=== PATIENT | male | born 1995 | race Caucasian/White ===

== ENCOUNTER 2018-06-27 11:42 | Emergency (ER) | payer OTHER ==
[2018-06-27] MEDS ORDERED: Ketorolac 60 MG/2 ML SDV IM ONE (12:05)
--- NOTE | 2018-06-27 12:21 | EDM.PDOC ---
ED HPI GENERAL MEDICAL PROBLEM - General Chief Complaint: Back Pain or Injury Stated Complaint: BACK PAIN Time Seen by Provider: 06/27/18 12:16 Source of Information: Reports: Patient History Limitations: Reports: No Limitations - History of Present Illness INITIAL COMMENTS - FREE TEXT/NARRATIVE: HISTORY AND PHYSICAL: History of present illness: Patient is a 22-year-old male who presents to the emergency room today with complaints of low back pain He was working on a tire when he bent over to pull it off and he felt a "shock" through the lumbar spine going into bilateral glutes. He states he had to stop what he was doing due to the pain. Increased pain with twisting and bending at the hips. He denies any urinary or fecal incontinence. Denies any numbness or tingling to his distal extremities. Review of systems: As per history of present illness and below otherwise all systems reviewed and negative. Past medical history: As per history of present illness and as reviewed below otherwise noncontributory. Surgical history: As per history of present illness and as reviewed below otherwise noncontributory. Social history: No reported history of drug or alcohol abuse. Family history: As per history of present illness and as reviewed below otherwise noncontributory. Physical exam: General: Well-developed and well-nourished 22-year-old male. Alert and oriented. Nontoxic appearing and in no acute distress. HEENT: Atraumatic, normocephalic, pupils equal and reactive bilaterally, negative for conjunctival pallor or scleral icterus, mucous membranes moist, throat clear, neck supple, nontender, trachea midline. No drooling or trismus noted. No meningeal signs Lungs: Clear to auscultation, breath sounds equal bilaterally, chest nontender. Heart: S1S2, regular rate and rhythm without overt murmur Abdomen: Soft, nondistended, nontender. Negative for masses or hepatosplenomegaly. Negative for costovertebral tenderness. Pelvis: Stable nontender. Genitourinary: Deferred. Rectal: Deferred. Skin: Intact, warm, dry. No lesions or rashes noted. C-spine/Back: No pinpoint vertebral tenderness upon palpation. No crepitus, step -offs or obvious deformities. Patient was ambulatory into the emergency room. Able to walk on heels and toes without difficulty. No numbness or tingling to his distal extremities. No fecal or urinary incontinence. Does have some paraspinous muscle discomfort when palpating to the low lumbar region into the glue. Extremities: Atraumatic, negative for cords or calf pain. Neurovascular unremarkable. Neuro: Awake, alert, oriented. Cranial nerves II through XII unremarkable. Cerebellum unremarkable. Motor and sensory unremarkable throughout. Exam nonfocal. Notes: X-ray shows no acute findings. Supportive care measures were reviewed and discussed. Patient voices understanding and is agreeable to plan of care. Denies any further questions or concerns at this time. Diagnostics: Lumbar x-ray Therapeutics: Toradol Prescription: Flexeril (#30) Diclofenac (#30) Impression: Low back pain with sciatica Plan: 1. Rest and ice the painful area. Gentle stretching. 2. Tylenol as needed for pain. He may use the Flexeril and diclofenac as directed. This medication may cause drowsiness so do not take it will driving her needing to be functioning outside of the house. Do not take any additional NSAID such as ibuprofen or the diclofenac. Please take with food. 3. Follow-up with your primary care provider in the next 1-2 days. Return to the ED as needed and as discussed. Definitive disposition and diagnosis as appropriate pending reevaluation and review of above. lower back Pain Score (Numeric/FACES): 8 - Related Data Allergies Allergy/AdvReac Type Severity Reaction Status Date / Time No Known Allergies Allergy Verified 06/27/18 11:49 Home Meds: Home Meds Cyclobenzaprine [Flexeril] 10 mg PO TID PRN #30 tab 06/27/18 [Rx] Diclofenac Sodium [Voltaren] 75 mg PO BIDMEALS PRN #30 tab.cr 06/27/18 [Rx] Past Medical History - Past Health History Medical/Surgical History: Denies Medical/Surgical History Cardiovascular History: Reports: Heart Murmur Musculoskeletal History: Reports: Back Pain, Chronic - Infectious Disease History Infectious Disease History: Reports: Chicken Pox - Past Surgical History Musculoskeletal Surgical History: Reports: Other (See Below) Other Musculoskeletal Surgeries/Procedures:: Foot surgery, Hand surgery Social & Family History - Family History Family Medical History: Noncontributory Cardiac: Reports: CAD Endocrine/Metabolic: Reports: Diabetes, Type I - Tobacco Use Smoking Status *Q: Current Every Day Smoker Years of Tobacco use: 10 Packs/Tins Daily: 0.5 - Caffeine Use Caffeine Use: Reports: Energy Drinks - Recreational Drug Use Recreational Drug Use: Yes Drug Use in Last 12 Months: Yes Recreational Drug Type: Reports: Marijuana/Hashish Recreational Drug Use Frequency: Daily ED ROS GENERAL - Review of Systems Review Of Systems: ROS reveals no pertinent complaints other than HPI. ED EXAM,LOWER BACK PAIN/INJURY - Physical Exam Exam: See Below (See dictation) Course - Vital Signs Last Recorded V/S: Last Vital Signs Temp 98.1 F 06/27/18 11:46 Pulse 78 06/27/18 11:46 Resp 16 06/27/18 11:46 BP 134/77 06/27/18 11:46 Pulse Ox 100 06/27/18 11:46 - Orders/Labs/Meds Orders: Active Orders 24 hr Category Date Time Status Lumbar Spine 2 or 3V [CR] Stat Exams 06/27/18 12:05 Taken Meds: Medications Discontinued Medications Generic Name Dose Route Start Last Admin Trade Name Freq PRN Reason Stop Dose Admin Ketorolac Tromethamine 60 mg 06/27/18 12:05 06/27/18 12:19 Toradol IM 06/27/18 12:06 60 mg ONETIME ONE Administration Departure - Departure Time of Disposition: 12:44 Disposition: Home, Self-Care 01 Clinical Impression: Low back pain Qualifiers: Chronicity: acute Back pain laterality: bilateral Sciatica presence: with sciatica Sciatica laterality: bilateral sciatica Qualified Code(s): M54.42 - Lumbago with sciatica, left side - Discharge Information Prescriptions: Cyclobenzaprine [Flexeril] 10 mg PO TID PRN #30 tab PRN Reason: Pain Diclofenac Sodium [Voltaren] 75 mg PO BIDMEALS PRN #30 tab.cr PRN Reason: Pain Instructions: Back Pain, Adult, [id number] Referrals: PCP,None [Primary Care Provider] - Forms: ED Department Discharge Additional Instructions: The following information is given to patients seen in the emergency department who are being discharged to home. This information is to outline your options for follow-up care. We provide all patients seen in our emergency department with a follow-up referral. The need for follow-up, as well as the timing and circumstances, are variable depending upon the specifics of your emergency department visit. If you don't have a primary care physician on staff, we will provide you with a referral. We always advise you to contact your personal physician following an emergency department visit to inform them of the circumstance of the visit and for follow-up with them and/or the need for any referrals to a consulting specialist. The emergency department will also refer you to a specialist when appropriate. This referral assures that you have the opportunity for follow-up care with a specialist. All of these measure are taken in an effort to provide you with optimal care, which includes your follow-up. Under all circumstances we always encourage you to contact your private physician who remains a resource for coordinating your care. When calling for follow-up care, please make the office aware that this follow-up is from your recent emergency room visit. If for any reason you are refused follow-up, please contact the [facility] Emergency Department at and asked to speak to the emergency department charge nurse. [facility] [address] [place] [id number] 1. Rest and ice the painful area. Gentle stretching. 2. Tylenol as needed for pain. He may use the Flexeril and diclofenac as directed. This medication may cause drowsiness so do not take it will driving her needing to be functioning outside of the house. Do not take any additional NSAID such as ibuprofen or the diclofenac. Please take with food. 3. Follow-up with your primary care provider in the next 1-2 days. Return to the ED as needed and as discussed. - My Orders Last 24 Hours: My Active Orders 06/27/18 12:05 Lumbar Spine 2 or 3V [CR] Stat - Assessment/Plan Last 24 Hours: My Active Orders 06/27/18 12:05 Lumbar Spine 2 or 3V [CR] Stat
--- NOTE | 2018-06-27 17:56 | CR ---
EXAM DATE: 06/27/18 PATIENT'S AGE: 22 Patient: ANAHY SANTOS Facility: [place], [place] Site . Site : 1995 Study: XRay Spine Lumbar [id number]/20/2018 12:39:02 PM Ordering Physician: Doctor Sahni Final Report: HISTORY: Pain. TECHNIQUE: Lumbar spine 3 views. COMPARISON: None. FINDINGS: Five lumbar type vertebral bodies. Alignment, vertebral body heights, and disc spaces are maintained. Slightly irregular lucency through the L5 pars interarticularis best seen on the lateral view. IMPRESSION: Possible L5 pars interarticularis defects versus artifact. No other abnormality. Dictated by Bulmaro Downs MD @ Jun 27 2018 12:39PM (Electronic Signature) Report Signed by Proxy. SHY
== END 2018-06-27 13:00 | disposition home or self-care (01) ==
LOC: MW.ED 11:42
DX: M54.42 Lumbago with sciatica, left side (principal); M54.41 Lumbago with sciatica, right side; F17.210 Nicotine dependence, cigarettes, uncomplicated
CPT/HCPCS: 72100; 96372; 99283; J1885

== ENCOUNTER 2018-12-14 11:37 | Emergency (ER) | payer BC, OTHER ==
[2018-12-14] MEDS ORDERED: Acetaminophen/HYDROcodone 325-5 MG Tab PO ONE (12:15)
--- NOTE | 2018-12-14 12:23 | EDM.PDOC ---
ED HPI GENERAL MEDICAL PROBLEM - General Chief Complaint: Skin Complaint Stated Complaint: RIGHT ARM POSS SPIDER BITE Time Seen by Provider: 12/14/18 11:52 Source of Information: Reports: Patient History Limitations: Reports: No Limitations - History of Present Illness INITIAL COMMENTS - FREE TEXT/NARRATIVE: HISTORY AND PHYSICAL: History of present illness: Patient is a 23-year-old male who presents to the ED today with "a spider bite on his arm ". He states that he has had this for about a week and he pops it daily. He states about 3 days ago he went and saw Dr. Busby at [facility] and was given Bactrim and has taken this for the past 3 days. He states that today the bite looks a lot worse. He states for the past 2 days he has been having fevers and chills with a TMax of 101. He states that he has been taking ibuprofen and Tylenol as needed for pain and fever. He states that he has also had a headache over the past day and just feels "unwell" from the bite. Patient states he called Dr. Busby's clinic today and was instructed to come to the ED. Patient denies any nausea, vomiting, difficulties breathing, or any other GI or symptoms. Patient denies any health history. Review of systems: As per history of present illness and below otherwise all systems reviewed and negative. Past medical history: As per history of present illness and as reviewed below otherwise noncontributory. Surgical history: As per history of present illness and as reviewed below otherwise noncontributory. Social history: See social history for further information Family history: As per history of present illness and as reviewed below otherwise noncontributory. Physical exam: General: Patient is alert, oriented, and in no acute distress. He is tired appearing but sitting comfortably on the exam table. HEENT: Atraumatic, normocephalic, pupils equal and reactive bilaterally, negative for conjunctival pallor or scleral icterus, mucous membranes moist, TMs normal bilaterally, throat clear, neck supple, nontender, trachea midline. No drooling or trismus noted. No meningeal signs. No hot potato voice noted. Lungs: Clear to auscultation, breath sounds equal bilaterally, chest nontender. Heart: S1S2, regular rate and rhythm without overt murmur Abdomen: Soft, nondistended, nontender. Negative for masses or hepatosplenomegaly. Negative for costovertebral tenderness. Pelvis: Stable nontender. Genitourinary: Deferred. Rectal: Deferred. Skin: See extremities. Otherwise, intact, warm, dry. No lesions or rashes noted. Extremities: There is a 3 cm x 3 cm abscess on patient's right forearm on the ulnar aspect. Otherwise, atraumatic, negative for cords or calf pain. Neurovascular unremarkable. Neuro: Awake, alert, oriented. Cranial nerves II through XII unremarkable. Cerebellum unremarkable. Motor and sensory unremarkable throughout. Exam nonfocal. Notes: Area was cleansed prior to lidocaine injection. 1% lidocaine was used to anesthetize the area. 11 blade scalpel was used for I&D. Minimal amount of thick purulent drainage was expressed from the site. Culture was obtained and sent to lab. Area was cleansed with chlorhexidine and wound wash. Bacitracin dressing applied. Waiting on a CBC and CMP results. Area of surrounding erythema was marked prior to applying dressing. Tetanus was updated today. Labs are reassuring today. Home instructions were reviewed and discussed with patient and mother at bedside. Both voice understanding and are agreeable to plan of care. They will follow-up with their primary care provider Dr. Garcia in the next few days. They deny any further questions or concerns at this time. Diagnostics: CBC, CMP Therapeutics: Sarah Ann, lidocaine, I&D Prescription: None Impression: 1. Abscess, right forearm Plan: 1. Continue medication Dr. Busby prescribed for you (Bactrim). This will help rid of the infection. 2. Watch for redness growing outside of area marked on arm. If this is spreading outward, return to ED or Dr. Busby for change of antibiotic. 3. Alternate Tylenol and Ibuprofen as needed for pain / discomfort. 4. Return to the ED as needed and as discussed. Definitive disposition and diagnosis as appropriate pending reevaluation and review of above. Right Arm Pain Score (Numeric/FACES): 8 - Related Data Allergies Allergy/AdvReac Type Severity Reaction Status Date / Time No Known Allergies Allergy Verified 06/27/18 11:49 Home Meds: Home Meds ALPRAZolam [Xanax] 1 tab PO TID PRN 12/14/18 [History] Past Medical History - Past Health History Medical/Surgical History: Denies Medical/Surgical History Cardiovascular History: Reports: Heart Murmur Musculoskeletal History: Reports: Back Pain, Chronic - Infectious Disease History Infectious Disease History: Reports: Chicken Pox - Past Surgical History Musculoskeletal Surgical History: Reports: Other (See Below) Other Musculoskeletal Surgeries/Procedures:: Foot surgery, Hand surgery Social & Family History - Family History Family Medical History: Noncontributory Cardiac: Reports: CAD Endocrine/Metabolic: Reports: Diabetes, Type I - Caffeine Use Caffeine Use: Reports: Energy Drinks ED ROS GENERAL - Review of Systems Review Of Systems: ROS reveals no pertinent complaints other than HPI. ED EXAM, SKIN/RASH Exam: See Below (See dictation) Course - Vital Signs Last Recorded V/S: Last Vital Signs Temp 97.8 F 12/14/18 12:10 Pulse 63 12/14/18 12:10 Resp 18 12/14/18 12:10 BP 116/76 12/14/18 12:10 Pulse Ox 100 12/14/18 12:10 - Orders/Labs/Meds Orders: Active Orders 24 hr Category Date Time Status Vaccines to be Administered [RC] PER UNIT ROUTINE Care 12/14/18 12:37 Active COMPREHENSIVE METABOLIC PN,CMP [CHEM] Stat Lab 12/14/18 12:26 Received CULTURE WOUND [RM] Stat Lab 12/14/18 12:31 Received Labs: Laboratory Tests 12/14/18 Range/Units 12:26 WBC 5.82 (4.0-11.0) K/uL RBC 5.06 (4.50-5.90) M/uL Hgb 14.7 (13.0-17.0) g/dL Hct 41.9 (38.0-50.0) % MCV 82.8 (80.0-98.0) fL MCH 29.1 (27.0-32.0) pg MCHC 35.1 (31.0-37.0) g/dL RDW Std Deviation 38.4 (28.0-62.0) fl RDW Coeff of Laisha 13 (11.0-15.0) % Plt Count 262 (150-400) K/uL MPV 9.30 (7.40-12.00) fL Neut % (Auto) 65.7 (48.0-80.0) % Lymph % (Auto) 26.8 (16.0-40.0) % [place] % (Auto) 6.5 (0.0-15.0) % Eos % (Auto) 0.7 (0.0-7.0) % Baso % (Auto) 0.3 (0.0-1.5) % Neut # (Auto) 3.8 (1.4-5.7) K/uL Lymph # (Auto) 1.6 (0.6-2.4) K/uL [place] # (Auto) 0.4 (0.0-0.8) K/uL Eos # (Auto) 0.0 (0.0-0.7) K/uL Baso # (Auto) 0.0 (0.0-0.1) K/uL Nucleated RBC % 0.0 /100WBC Nucleated RBCs # 0 K/uL Meds: Medications Discontinued Medications Generic Name Dose Route Start Last Admin Trade Name Freq PRN Reason Stop Dose Admin Hydrocodone Bitart/Acetaminophen 1 tab 12/14/18 12:15 12/14/18 12:23 Sarah Ann 325-5 Mg PO 12/14/18 12:16 1 tab ONETIME ONE Administration Bacitracin 1 dose 12/14/18 12:36 12/14/18 12:42 Bacitracin Oint 1 Gm TOP 12/14/18 12:37 1 dose ONETIME ONE Administration Diphtheria/Tetanus/Acell Pertussis 0.5 ml 12/14/18 12:37 12/14/18 12:43 Adacel IM 12/14/18 12:38 0.5 ml .ONCE ONE Administration Lidocaine HCl 5 ml 12/14/18 12:16 12/14/18 12:23 Xylocaine-Mpf 1% INJECT 12/14/18 12:17 5 ml ONETIME ONE Administration Departure - Departure Time of Disposition: 12:50 Disposition: Home, Self-Care 01 Clinical Impression: Abscess - Discharge Information Instructions: Skin Abscess, [id number] Referrals: Thai Garcia MD [Primary Care Provider] - Forms: ED Department Discharge Additional Instructions: The following information is given to patients seen in the emergency department who are being discharged to home. This information is to outline your options for follow-up care. We provide all patients seen in our emergency department with a follow-up referral. The need for follow-up, as well as the timing and circumstances, are variable depending upon the specifics of your emergency department visit. If you don't have a primary care physician on staff, we will provide you with a referral. We always advise you to contact your personal physician following an emergency department visit to inform them of the circumstance of the visit and for follow-up with them and/or the need for any referrals to a consulting specialist. The emergency department will also refer you to a specialist when appropriate. This referral assures that you have the opportunity for follow-up care with a specialist. All of these measure are taken in an effort to provide you with optimal care, which includes your follow-up. Under all circumstances we always encourage you to contact your private physician who remains a resource for coordinating your care. When calling for follow-up care, please make the office aware that this follow-up is from your recent emergency room visit. If for any reason you are refused follow-up, please contact the [facility] Emergency Department at and asked to speak to the emergency department charge nurse. [facility] Primary [facility] [address] [place] [id number] [facility] [address] [place] [address] 1. Continue medication Dr. Busby prescribed for you (Bactrim). This will help rid of the infection. 2. Watch for redness growing outside of area marked on arm. If this is spreading outward, return to ED or Dr. Busby for change of antibiotic. 3. Alternate Tylenol and Ibuprofen as needed for pain / discomfort. 4. Return to the ED as needed and as discussed. - My Orders Last 24 Hours: My Active Orders 12/14/18 12:26 COMPREHENSIVE METABOLIC PN,CMP [CHEM] Stat 12/14/18 12:31 CULTURE WOUND [RM] Stat 12/14/18 12:37 Vaccines to be Administered [RC] PER UNIT ROUTINE - Assessment/Plan Last 24 Hours: My Active Orders 12/14/18 12:26 COMPREHENSIVE METABOLIC PN,CMP [CHEM] Stat 12/14/18 12:31 CULTURE WOUND [RM] Stat 12/14/18 12:37 Vaccines to be Administered [RC] PER UNIT ROUTINE
[2018-12-14] MEDS ORDERED: Bacitracin Oint 1 GM U/D Packet TOP ONE (12:36)
[2018-12-14] MEDS ORDERED: Diphtheria,Pertussis(Acell),Tetanus Vaccine 0.5 ML Syringe IM ONE (12:37)
[2018-12-14 12:56] LABS: CHLORIDE,CL 105 mmol/L (98-107); SODIUM,NA 140 mmol/L (136-148)
== END 2018-12-14 12:57 | disposition home or self-care (01) ==
LOC: MW.ED 11:37
DX: L02.413 Cutaneous abscess of right upper limb (principal); R51 Headache; Z23 Encounter for immunization
CPT/HCPCS: 10060; 36415; 80053; 85025; 87070; 90471; 90715; 99282; A9270; 87077; 87186

== ENCOUNTER 2021-08-21 10:16 | Emergency (ER) | payer BC, MEDICAID, OTHER ==
[2021-08-21] MEDS ORDERED: Sodium Chloride 0.9% 1,000 ML IV ONE (10:23)
[2021-08-21] MEDS ORDERED: Ketorolac 30 MG/ML SDV IVPUSH ONE (10:24)
[2021-08-21] MEDS ORDERED: LORazepam 2 MG/ML SDV IVPUSH ONE (10:24)
--- NOTE | 2021-08-21 11:18 | EDM.PDOC ---
ED HPI GENERAL MEDICAL PROBLEM - General Chief Complaint: Chest Pain Stated Complaint: EMS ARRIVAL Time Seen by Provider: 08/21/21 10:23 Source of Information: Reports: Patient History Limitations: Reports: No Limitations - History of Present Illness INITIAL COMMENTS - FREE TEXT/NARRATIVE: HISTORY AND PHYSICAL: History of present illness: Patient is a 26-year-old male, with a history of anxiety, who presents emergency room today with concern of an episode of chest pain and near syncope that occurred just prior to arrival to the emergency room. Patient states that he was walking into work, when he suddenly felt this way of go over him and felt chest pain. Patient states that he felt shaky and was having chest discomfort/palpitations. Patient states that he called ambulance because of this. Patient states currently, majority of his symptoms have resolved except for he is shaky and has a 2 out of 10 residual chest pain. Patient states that he has had this happen 1 other time when he was quite younger but has not had this occur since. Patient states he was recently started on an anxiety medication approximately 1 month ago. Denies any other associated symptoms. Patient denies fever, chills, chest pain, shortness of breath, or cough. Denies headache, neck stiff ness, change in vision, syncope, or near syncope. Denies nausea, vomiting, abdominal pain, diarrhea, constipation, or dysuria. Has not noted any blood in urine or stool. Patient has been eating and drinking appropriately. Review of systems: As per history of present illness and below otherwise all systems reviewed and negative. Past medical history: As per history of present illness and as reviewed below otherwise noncontributory. Surgical history: As per history of present illness and as reviewed below otherwise noncontributory. Social history: See social history for further information Family history: As per history of present illness and as reviewed below otherwise noncontr ibutory. Physical exam: General: Patient is alert, oriented, and in no acute distress. Patient sitting comfortably on exam table, anxious appearing and shaking on exam. Vitals stable and reviewed by me HEENT: Atraumatic, normocephalic, pupils equal and reactive bilaterally, negative for conjunctival pallor or scleral icterus, mucous membranes moist, neck supple, nontender, trachea midline. No drooling or trismus noted. No meningeal signs. No hot potato voice noted. Lungs: Clear to auscultation, breath sounds equal bilaterally, chest nontender. Heart: S1S2, regular rate and rhythm without overt murmur Abdomen: Soft, nondistended, nontender. Negative for masses or hepatosplenomegaly. Negative for costovertebral tenderness. Pelvis: Stable nontender. Genitourinary: Deferred. Rectal: Deferred. Skin: Intact, warm, dry. No lesions or rashes noted. Extremities: Atraumatic, negative for cords or calf pain. Neurovascular unremarkable. Neuro: Awake, alert, oriented. Cranial nerves II through XII unremarkable. Cerebellum unremarkable. Motor and sensory unremarkable throughout. Exam nonfocal. Notes: Patient is a 26-year-old male, with a history of anxiety, otherwise healthy, who presents emergency room today with concern of an episode of chest pain, presyncope/shaking episode that occurred just prior to arrival to the ED. Upon arrival to to the emergency room, patient is vitally stable, he is anxious appearing on exam and shaking (this does limit our initial EKG interpretation,, however plan to reobtain this after patient calms down), otherwise physical exam is unremarkable. Will obtain cardiac evaluation at this time, provide a dose of Ativan and Toradol, and reassess patient. See Dr Fernandez's dictation for specific EKG interpretation. Note that this EKG is limited as patient is shaking on exam. CBC does show very mild leukocytosis at 11.07 which is nonspecific. Otherwise mild derangements of CBC unremarkable. D-dimer negative. CMP unremarkable. Troponin negative. Chest x-ray shows no acute cardiopulmonary findings. Repeat EKG shows normal sinus rhythm without STEMI or acute changes. Upon reevaluation of patient, he has much more calm and has resolution of his symptoms today with therapeutics given to the emergency room. Patient is no longer anxious or shaking on exam. Strict return precautions thoroughly discussed with patient. Discussed importance for follow-up with a primary care provider. Voices understanding and is agreeable to plan of care. Denies any further questions or concerns at this time. Diagnostics: EKG, CBC, CMP, lipase, chest x-ray 1 view, troponin Therapeutics: Normal saline, Toradol, Ativan Prescription: None Impression: Atypical chest pain Plan: 1. Take medication as prescribed. You can alternate ibuprofen and Tylenol as directed for pain and discomfort. 2. Follow-up with a primary care provider as discussed. Return to the ED as needed and as discussed. Definitive disposition and diagnosis as appropriate pending reevaluation and review of above. chest Pain Score (Numeric/FACES): 1 - Related Data Allergies Allergy/AdvReac Type Severity Reaction Status Date / Time No Known Allergies Allergy Verified 08/21/21 10:22 Home Meds: Home Meds LORazepam [Ativan] 1 tab PO TID PRN 08/21/21 [History] atoMOXetine HCl [Strattera] 08/21/21 [History] Past Medical History - Past Health History Medical/Surgical History: Denies Medical/Surgical History Cardiovascular History: Reports: Heart Murmur Musculoskeletal History: Reports: Back Pain, Chronic Psychiatric History: Reports: Anxiety - Infectious Disease History Infectious Disease History: Reports: Chicken Pox - Past Surgical History Musculoskeletal Surgical History: Reports: Other (See Below) Other Musculoskeletal Surgeries/Procedures:: Foot surgery, Hand surgery Social & Family History - Family History Family Medical History: No Pertinent Family History Cardiac: Reports: CAD, [place] Endocrine/Metabolic: Reports: Diabetes, Type I - Tobacco Use Tobacco Use Status *Q: Current Every Day Tobacco User Years of Tobacco use: 11 Packs/Tins Daily: 0.2 - Caffeine Use Caffeine Use: Reports: Soda - Recreational Drug Use Recreational Drug Use: Yes Drug Use in Last 12 Months: Yes Recreational Drug Type: Reports: Marijuana/Hashish Recreational Drug Use Frequency: Not Used In Over 1 Month ED ROS GENERAL - Review of Systems Review Of Systems: Comprehensive ROS is negative, except as noted in HPI. ED EXAM, GENERAL - Physical Exam Exam: See Below (see dictation) Course - Vital Signs Last Recorded V/S: Last Vital Signs Temp 97 F 08/21/21 10:17 Pulse 79 08/21/21 12:00 Resp 18 08/21/21 10:17 BP 128/73 08/21/21 12:00 Pulse Ox 100 08/21/21 12:00 - Orders/Labs/Meds Labs: Laboratory Tests 08/21/21 08/21/21 08/21/21 Range/Units 10:54 10:54 10:54 WBC 11.07 H (4.0-11.0) K/uL RBC 5.38 (4.50-5.90) M/uL Hgb 16.0 (13.0-17.0) g/dL Hct 44.8 (38.0-50.0) % MCV 83.3 (80.0-98.0) fL MCH 29.7 (27.0-32.0) pg MCHC 35.7 (31.0-37.0) g/dL RDW Std Deviation 38.4 (28.0-62.0) fl RDW Coeff of Laisha 13 (11.0-15.0) % Plt Count 283 (150-400) K/uL MPV 10.00 (7.40-12.00) fL Neut % (Auto) 85.9 H (48.0-80.0) % Lymph % (Auto) 8.9 L (16.0-40.0) % Kendall % (Auto) 4.7 (0.0-15.0) % Eos % (Auto) 0.3 (0.0-7.0) % Baso % (Auto) 0.2 (0.0-1.5) % Neut # (Auto) 9.5 H (1.4-5.7) K/uL Lymph # (Auto) 1.0 (0.6-2.4) K/uL Kendall # (Auto) 0.5 (0.0-0.8) K/uL Eos # (Auto) 0.0 (0.0-0.7) K/uL Baso # (Auto) 0.0 (0.0-0.1) K/uL Nucleated RBC % 0.3 /100WBC Nucleated RBCs # 0 K/uL D-Dimer, Quantitative < 0.19 (0.0-0.50) mg/L FEU Sodium 140 (136-148) mmol/L Potassium 4.1 (3.5-5.1) mmol/L Chloride 104 (98-107) mmol/L Carbon Dioxide 23.8 (21.0-32.0) mmol/L BUN 16 (7.0-18.0) mg/dL Creatinine 1.1 (0.8-1.3) mg/dL Est Cr Clr Drug Dosing 94.31 mL/min Estimated GFR (MDRD) > 60.0 ml/min Glucose 142 H (74-106) mg/dL Calcium 9.0 (8.5-10.1) mg/dL Total Bilirubin 0.6 (0.2-1.0) mg/dL AST 20 (15-37) IU/L ALT 36 (14-63) IU/L Alkaline Phosphatase 63 (46-116) U/L Troponin I < 0.050 (0.000-0.056) ng/mL Total Protein 7.2 (6.4-8.2) g/dL Albumin 4.2 (3.4-5.0) g/dL Globulin 3.0 (2.6-4.0) g/dL Albumin/Globulin Ratio 1.4 (0.9-1.6) Lipase 79 (73-393) U/L Meds: Medications Discontinued Medications Generic Name Dose Route Start Last Admin Trade Name Freq PRN Reason Stop Dose Admin Sodium Chloride 1,000 mls @ 999 mls/hr 08/21/21 10:23 08/21/21 10:59 Normal Saline IV 08/21/21 11:23 999 mls/hr BOLUS ONE Administration Ketorolac Tromethamine 30 mg 08/21/21 10:24 08/21/21 10:59 Ketorolac 30 Mg/Ml Sdv IVPUSH 08/21/21 10:25 30 mg ONETIME ONE Administration Lorazepam 0.5 mg 08/21/21 10:24 08/21/21 10:59 Lorazepam 2 Mg/Ml Sdv IVPUSH 08/21/21 10:25 0.5 mg ONETIME ONE Administration Departure - Departure Time of Disposition: 11:50 Disposition: Home, Self-Care 01 Clinical Impression: Atypical chest pain - Discharge Information Instructions: Nonspecific Chest Pain, Adult, [id number] Referrals: Thai Garcia MD [Primary Care Provider] - Forms: ED Department Discharge Additional Instructions: The following information is given to patients seen in the emergency department who are being discharged to home. This information is to outline your options for follow-up care. We provide all patients seen in our emergency department with a follow-up referral. The need for follow-up, as well as the timing and circumstances, are variable depending upon the specifics of your emergency department visit. If you don't have a primary care physician on staff, we will provide you with a referral. We always advise you to contact your personal physician following an emergency department visit to inform them of the circumstance of the visit and for follow-up with them and/or the need for any referrals to a consulting specialist. The emergency department will also refer you to a specialist when appropriate. T his referral assures that you have the opportunity for follow-up care with a specialist. All of these measure are taken in an effort to provide you with optimal care, which includes your follow-up. Under all circumstances we always encourage you to contact your private physician who remains a resource for coordinating your care. When calling for follow-up care, please make the office aware that this follow-up is from your recent emergency room visit. If for any reason you are refused follow-up, please contact the [facility] Emergency Department at and asked to speak to the emergency department charge nurse. [facility] [address] [place] [address] [address] Sepsis Event Note (ED) - Evaluation Sepsis Screening Result: No Definite Risk - Focused Exam Vital Signs: Vital Signs Temp Pulse Resp BP Pulse Ox 08/21/21 12:00 79 128/73 100 08/21/21 11:29 85 126/79 100 08/21/21 11:14 89 126/80 99 08/21/21 10:59 71 124/74 100 08/21/21 10:17 97 F 64 18 114/77 100
[2021-08-21 11:27] LABS: BLOOD UREA NITROGEN,BUN 16 mg/dL (7.0-18.0); CARBON DIOXIDE,CO2 23.8 mmol/L (21.0-32.0); CHLORIDE,CL 104 mmol/L (98-107); GLUCOSE RANDOM 142 mg/dL (74-106); LIPASE 79 U/L (73-393); POTASSIUM,K 4.1 mmol/L (3.5-5.1); SODIUM,NA 140 mmol/L (136-148)
--- NOTE | 2021-08-21 11:31 | CR ---
Indication: Chest pain Comparison: None available. Technique: Single AP view chest Findings: There is no focal consolidation, effusion, or pneumothorax. There is a calcified granuloma in the medial right lung base. The cardiomediastinal silhouette is within normal limits. The bony thorax is grossly intact. Impression: No acute cardiopulmonary abnormality. Dictated by Luis Casarez MD @ 08/21/2021 11:28:54 AM (Electronically Signed)
--- NOTE | 2021-08-22 11:26 | PCM.EKG ---
#1 Interpretation EKG Date: 08/21/21 Time: 10:16 Rhythm: A-Flutter Rate (Beats/Min): 70 [place]: Normal P-Wave: Present QRS: Normal ST-T: Normal QT: Normal Comparison: NA - No Prior EKG EKG Interpretation Comments: Atrial Flutter (However patient is shaking from anxiety....likely artifact) #2 Interpretation EKG Date: 08/21/21 Time: 11:49 Rhythm: NSR Rate (Beats/Min): 77 [place]: Normal P-Wave: Present QRS: Normal ST-T: Normal QT: Normal Comparison: NA - No Prior EKG EKG Interpretation Comments: Sinus Rhythm
== END 2021-08-21 12:10 | disposition home or self-care (01) ==
LOC: MW.ED 10:16
DX: R07.89 Other chest pain (principal); Z72.0 Tobacco use
CPT/HCPCS: 36415; 71045; 80053; 83690; 84484; 85025; 85379; 93005; 96374; 96375; 99285; J1885; J2060; J7030

== ENCOUNTER 2021-09-03 09:40 | Emergency (ER) | payer MEDICAID ==
[2021-09-03] MEDS ORDERED: Sodium Chloride 0.9% 1,000 ML IV ONE (10:09)
[2021-09-03] MEDS ORDERED: Ketorolac 30 MG/ML SDV IVPUSH ONE ×2 (10:09→12:11)
--- NOTE | 2021-09-03 10:25 | EDM.PDOC ---
ED HPI GENERAL MEDICAL PROBLEM - General Chief Complaint: Chest Pain Stated Complaint: CHEST PAIN Time Seen by Provider: 09/03/21 09:55 Source of Information: Reports: Patient History Limitations: Reports: No Limitations - History of Present Illness INITIAL COMMENTS - FREE TEXT/NARRATIVE: HISTORY AND PHYSICAL: History of present illness: Patient is a 26-year-old male who presents emergency room today with concern of chest pain and syncopal event that occurred just prior to arrival to the emergency room. Patient was seen in the emergency room on 08/21/1021, and states that since then, he has had chest pain just about every day. Patient states he also went to the emergency room in [place] and had a work-up there and also sent home. Patient states he did follow-up with his primary care provider, Dr. Busby, who is in the process of getting him scheduled for a stress test, but states that this has not yet happened. Patient states that he does have a history of anxiety and states that they have been treating his anxiety in case this is contributing to his symptoms but states that he has not noticed that is helping. Patient states today he woke up and was having chest pain and dizziness and states that he was in the hallway when he became very lightheaded and lost consciousness. Patient states that he is unsure if he hit his head but who also at bedside said she heard him hit his head. Per patient was unconscious for approximately 20 to 30 seconds and took her several minutes in order to get him back up into the emergency room. Patient states at this time, his only complaint is chest pain. Patient denies fever, chills, shortness of breath, or cough. Denies headache, neck stiff ness, change in vision. Denies nausea, vomiting, abdominal pain, diarrhea, constipation, or dysuria. Has not noted any blood in urine or stool. Patient has been eating and drinking appropriately. Review of systems: As per history of present illness and below otherwise all systems reviewed and negative. Past medical history: As per history of present illness and as reviewed below otherwise noncontributory. Surgical history: As per history of present illness and as reviewed below otherwise noncontributory. Social history: See social history for further information Family history: As per history of present illness and as reviewed below otherwise noncontributory. Physical exam: General: Patient is alert, oriented, and in no acute distress. Patient laying comfortably on exam table. Vitals stable and reviewed by me. HEENT: Atraumatic, normocephalic, pupils equal and reactive bilaterally, negative for conjunctival pallor or scleral icterus, mucous membranes moist, TMs normal bilaterally, throat clear, neck supple, nontender, trachea midline. No drooling or trismus noted. No meningeal signs. No hot potato voice noted. Lungs: Clear to auscultation, breath sounds equal bilaterally, chest nontender. Heart: S1S2, regular rate and rhythm without overt murmur Abdomen: Soft, nondistended, nontender. Negative for masses or hepatosplenomegaly. Negative for costovertebral tenderness. Pelvis: Stable nontender. Genitourinary: Deferred. Rectal: Deferred. Skin: Intact, warm, dry. No lesions or rashes noted. Extremities: Atraumatic, negative for cords or calf pain. Neurovascular unremarkable. Neuro: Awake, alert, oriented. Cranial nerves II through XII unremarkable. Cerebellum unremarkable. Motor and sensory unremarkable throughout. Exam nonfocal. Notes: Patient is a 26-year-old otherwise healthy male, with a history of anxiety, who presents emergency room today with concern of chest pain with syncopal event and head injury that occurred just prior to arrival to the emergency room. Upon arrival to the ED, patient is vitally stable and otherwise well-appearing on exam. I personally did see and evaluate patient on 08/21/2021, and at that time, patient had an unremarkable cardiac evaluation including no acute cardiopulmonary findings on chest x-ray with negative D-dimer negative troponin and no acute EKG changes. Given worsening symptoms will repeat cardiac evaluation today along with obtain Ang CT Chest, Head CT w/o cont given head injury during syncopal event, and reassess patient. See Dr. Mcneill dictation for specific EKG interpretation. However, normal sinus rhythm without STEMI. No changes from prior on 08/21/2021 CBC does show mild loose leukocytosis with white blood cell count 11.64, otherwise mild derangements of CBC unremarkable. CMP does show an isolated elevation of BUN at 20, otherwise mild derangements of CMP unremarkable. Troponin negative. Head CT shows negative noncontrast head CT. Angiography of chest is negative. Upon reevaluation of patient, he remains vitally stable and has improvement of h is symptoms throughout stay in ED. Given that patient has had continued symptoms since his evaluation on 08/21/2021 with dizziness and syncope, will set up patient with the outpatient Holter monitor/Zio patch. This was placed today in the emergency room with results going to be sent to his primary care provider, Dr. Busby. Strict return precautions thoroughly discussed with patient. Discussed importance for follow-up with his primary care provider. Voices understanding and is agreeable to plan of care. Denies any further questions or concerns at this time. Diagnostics: EKG, CBC, CMP, Trop, Ang CT Chest, Head CT w/o cont Therapeutics: NS, Toradol Prescription: Outpatient Holter Monitor Testing Impression: Syncope Atypical chest pain Head injury Plan: 1. You can alternate ibuprofen and Tylenol as directed for pain and discomfort. 2. Wear the ZioPatch monitor for 2 weeks as discussed. The results will be sent to your primary care provider for further follow-up and evaluation from this monitoring. 3. Follow-up with primary care provider as discussed. Return to the ED as needed and as discussed. Definitive disposition and diagnosis as appropriate pending reevaluation and review of above. chest Pain Score (Numeric/FACES): 2 - Related Data Allergies Allergy/AdvReac Type Severity Reaction Status Date / Time No Known Allergies Allergy Verified 09/03/21 09:50 Home Meds: Home Meds LORazepam [Ativan] 1 tab PO TID PRN 08/21/21 [History] Past Medical History - Past Health History Medical/Surgical History: Denies Medical/Surgical History Cardiovascular History: Reports: Heart Murmur Musculoskeletal History: Reports: Back Pain, Chronic Psychiatric History: Reports: Anxiety - Infectious Disease History Infectious Disease History: Reports: Chicken Pox, Influenza - Past Surgical History Musculoskeletal Surgical History: Reports: Other (See Below) Other Musculoskeletal Surgeries/Procedures:: Foot surgery, Hand surgery Social & Family History - Family History Family Medical History: No Pertinent Family History Cardiac: Reports: CAD, [place] Endocrine/Metabolic: Reports: Diabetes, Type I - Tobacco Use Tobacco Use Status *Q: Current Every Day Tobacco User Years of Tobacco use: 13 Packs/Tins Daily: 1 - Caffeine Use Caffeine Use: Reports: Soda - Recreational Drug Use Recreational Drug Use: Yes Recreational Drug Type: Reports: Marijuana/Hashish ED ROS GENERAL - Review of Systems Review Of Systems: Comprehensive ROS is negative, except as noted in HPI. ED EXAM, GENERAL - Physical Exam Exam: See Below (see dictation) Course - Vital Signs Last Recorded V/S: Last Vital Signs Temp 98 F 09/03/21 09:51 Pulse 76 09/03/21 09:51 Resp 20 09/03/21 09:51 BP 130/88 09/03/21 09:51 Pulse Ox 98 09/03/21 09:51 - Orders/Labs/Meds Labs: Laboratory Tests 09/03/21 09/03/21 09/03/21 Range/Units 09:50 09:50 09:50 WBC 11.64 H (4.0-11.0) K/uL RBC 5.30 (4.50-5.90) M/uL Hgb 15.3 (13.0-17.0) g/dL Hct 45.4 (38.0-50.0) % MCV 85.7 (80.0-98.0) fL MCH 28.9 (27.0-32.0) pg MCHC 33.7 (31.0-37.0) g/dL RDW Std Deviation 41.6 (28.0-62.0) fl RDW Coeff of Laisha 13 (11.0-15.0) % Plt Count 341 (150-400) K/uL MPV 9.60 (7.40-12.00) fL Neut % (Auto) 62.4 (48.0-80.0) % Lymph % (Auto) 29.0 (16.0-40.0) % [place] % (Auto) 7.4 (0.0-15.0) % Eos % (Auto) 0.9 (0.0-7.0) % Baso % (Auto) 0.3 (0.0-1.5) % Neut # (Auto) 7.3 H (1.4-5.7) K/uL Lymph # (Auto) 3.4 H (0.6-2.4) K/uL Flagler # (Auto) 0.9 H (0.0-0.8) K/uL Eos # (Auto) 0.1 (0.0-0.7) K/uL Baso # (Auto) 0.0 (0.0-0.1) K/uL Nucleated RBC % 0.0 /100WBC Nucleated RBCs # 0 K/uL Sodium 142 (136-148) mmol/L Potassium 3.7 (3.5-5.1) mmol/L Chloride 105 (98-107) mmol/L Carbon Dioxide 31.1 (21.0-32.0) mmol/L BUN 20 H (7.0-18.0) mg/dL Creatinine 1.1 (0.8-1.3) mg/dL Est Cr Clr Drug Dosing 94.31 mL/min Estimated GFR (MDRD) > 60.0 ml/min Glucose 98 (74-106) mg/dL Calcium 9.0 (8.5-10.1) mg/dL Total Bilirubin 0.2 (0.2-1.0) mg/dL AST 14 L (15-37) IU/L ALT 50 (14-63) IU/L Alkaline Phosphatase 61 (46-116) U/L Troponin I < 0.050 (0.000-0.056) ng/mL Total Protein 6.9 (6.4-8.2) g/dL Albumin 3.7 (3.4-5.0) g/dL Globulin 3.2 (2.6-4.0) g/dL Albumin/Globulin Ratio 1.2 (0.9-1.6) Lipase 81 (73-393) U/L Meds: Medications Discontinued Medications Generic Name Dose Route Start Last Admin Trade Name Freq PRN Reason Stop Dose Admin Sodium Chloride 1,000 mls @ 999 mls/hr 09/03/21 10:09 09/03/21 10:23 Normal Saline IV 09/03/21 11:09 999 mls/hr BOLUS ONE Administration Iopamidol 100 ml 09/03/21 11:10 09/03/21 11:10 Iopamidol 755 Mg/Ml 500 Ml Multipack Bottle IVPUSH 09/03/21 11:11 100 ml ONETIME STA Administration Ketorolac Tromethamine 30 mg 09/03/21 10:09 09/03/21 10:28 Ketorolac 30 Mg/Ml Sdv IVPUSH 09/03/21 10:10 Not Given ONETIME ONE Ketorolac Tromethamine 30 mg 09/03/21 12:11 09/03/21 12:40 Ketorolac 30 Mg/Ml Sdv IVPUSH 09/03/21 12:12 30 mg ONETIME ONE Administration Departure - Departure Time of Disposition: 12:40 Disposition: Home, Self-Care 01 Clinical Impression: Atypical chest pain Syncope Qualifiers: Syncope type: unspecified Qualified Code(s): R55 - Syncope and collapse Head injury Qualifiers: Encounter type: initial encounter Qualified Code(s): S09.90XA - Unspecified injury of head, initial encounter - Discharge Information Referrals: Thai Garcia MD [Primary Care Provider] - Forms: ED Department Discharge Additional Instructions: The following information is given to patients seen in the emergency department who are being discharged to home. This information is to outline your options for follow-up care. We provide all patients seen in our emergency department with a follow-up referral. The need for follow-up, as well as the timing and circumstances, are variable depending upon the specifics of your emergency department visit. If you don't have a primary care physician on staff, we will provide you with a referral. We always advise you to contact your personal physician following an emergency department visit to inform them of the circumstance of the visit and for follow-up with them and/or the need for any referrals to a consulting specialist. The emergency department will also refer you to a specialist when appropriate. This referral assures that you have the opportunity for follow-up care with a specialist. All of these measure are taken in an effort to provide you with optimal care, which includes your follow-up. Under all circumstances we always encourage you to contact your private physician who remains a resource for coordinating your care. When calling for follow-up care, please make the office aware that this follow-up is from your recent emergency room visit. If for any reason you are refused follow-up, please contact the [facility] Emergency Department at and asked to speak to the emergency department charge nurse. [facility] Primary Care [address] [place] [id number] [id number] 1. You can alternate ibuprofen and Tylenol as directed for pain and discomfort. 2. Wear the ZioPatch monitor for 2 weeks as discussed. The results will be sent to your primary care provider for further follow-up and evaluation from this monitoring. 3. Follow-up with primary care provider as discussed. Return to the ED as needed and as discussed. Sepsis Event Note (ED) - Evaluation Sepsis Screening Result: No Definite Risk - Focused Exam Vital Signs: Vital Signs Temp Pulse Resp BP Pulse Ox 09/03/21 09:51 98 F 76 20 130/88 98
[2021-09-03 10:46] LABS: BLOOD UREA NITROGEN,BUN 20 mg/dL (7.0-18.0); CARBON DIOXIDE,CO2 31.1 mmol/L (21.0-32.0); CHLORIDE,CL 105 mmol/L (98-107); GLUCOSE RANDOM 98 mg/dL (74-106); POTASSIUM,K 3.7 mmol/L (3.5-5.1); SODIUM,NA 142 mmol/L (136-148)
[2021-09-03] MEDS ORDERED: Iopamidol 755 MG/ML 500 ML Multipack Bottle IVPUSH STA (11:10)
--- NOTE | 2021-09-03 12:08 | CT ---
INDICATION: Head injury. Syncope. TECHNIQUE: Scanning of the head was performed without IV contrast material. Coronal and sagittal reconstructions were obtained. COMPARISON: None. FINDINGS: No intracranial hemorrhage is demonstrated. No mass effect or ventricular enlargement is evident. No calvarial or obvious facial fracture is identified. The visualized paranasal and mastoid sinuses are clear. IMPRESSION: Negative noncontrast head CT. Please note that all CT scans at this facility use dose modulation, iterative reconstruction, and/or weight-based dosing when appropriate to reduce radiation dose to as low as reasonably achievable. Dictated by Zach Ozuna MD @ 09/03/2021 12:06:44 PM (Electronically Signed)
--- NOTE | 2021-09-03 12:13 | CT ---
INDICATION: Syncope. Chest pain. TECHNIQUE: Volumetric helical scanning of the thorax was performed during infusion of 100 cc of Isovue 370 contrast material IV, timing optimized for pulmonary arterial opacification. Coronal and sagittal reconstructions were obtained. COMPARISON: None. FINDINGS: The images are of acceptable quality and demonstrate uniform vascular enhancement within the pulmonary arteries. No pulmonary arterial filling defect is identified. The heart size is normal. The lungs, airways and pleural spaces are clear. There is no mediastinal or hilar lymphadenopathy. Images of the upper abdomen are unremarkable. IMPRESSION: Negative chest CT. Please note that all CT scans at this facility use dose modulation, iterative reconstruction, and/or weight-based dosing when appropriate to reduce radiation dose to as low as reasonably achievable. Dictated by Zach Ozuna MD @ 09/03/2021 12:10:47 PM (Electronically Signed)
== END 2021-09-03 13:09 | disposition home or self-care (01) ==
LOC: MW.ED 09:40
DX: R55 Syncope and collapse (principal); S09.90XA Unspecified injury of head, initial encounter; R07.89 Other chest pain; Z72.0 Tobacco use
CPT/HCPCS: 36415; 70450; 71275; 80053; 83690; 84484; 85025; 96374; 99285; J1885; J7030; Q9967

== ENCOUNTER 2021-11-20 08:38 | Emergency (ER) | payer MEDICAID ==
[2021-11-20] MEDS ORDERED: Sodium Chloride 0.9% 2.5 ML Syringe FLUSH PRN (09:30)
[2021-11-20] MEDS ORDERED: Sodium Chloride 0.9% 10 ML Syringe FLUSH PRN (09:30)
[2021-11-20] MEDS ORDERED: Ibuprofen 600 MG Tab PO STA (09:54)
[2021-11-20 10:14] LABS: BLOOD UREA NITROGEN,BUN 21 mg/dL (7.0-18.0); CARBON DIOXIDE,CO2 22.9 mmol/L (21.0-32.0); CHLORIDE,CL 100 mmol/L (98-107); GLUCOSE RANDOM 114 mg/dL (74-106); POTASSIUM,K 3.9 mmol/L (3.5-5.1); SODIUM,NA 136 mmol/L (136-148)
== END 2021-11-20 12:23 | disposition home or self-care (01) ==
LOC: MW.ED 08:38
DX: R07.9 Chest pain, unspecified (principal); Z86.16 Personal history of COVID-19
CPT/HCPCS: 36415; 71045; 80053; 84484; 85025; 85379; 93005; 99285; A9270

== ENCOUNTER 2021-12-01 11:08 | Emergency (ER) | payer MEDICAID ==
[2021-12-01] MEDS ORDERED: Sodium Chloride 0.9% 2.5 ML Syringe FLUSH PRN (11:26)
[2021-12-01] MEDS ORDERED: Sodium Chloride 0.9% 10 ML Syringe FLUSH PRN (11:26)
[2021-12-01] MEDS ORDERED: Morphine 4 MG/ML VIAL IVPUSH ONE (11:43)
[2021-12-01] MEDS ORDERED: LORazepam 2 MG/ML SDV IVPUSH ONE (11:43)
[2021-12-01 12:27] LABS: BLOOD UREA NITROGEN,BUN 12 mg/dL (7.0-18.0); CARBON DIOXIDE,CO2 23.7 mmol/L (21.0-32.0); CHLORIDE,CL 105 mmol/L (98-107); GLUCOSE RANDOM 111 mg/dL (74-106); POTASSIUM,K 4.2 mmol/L (3.5-5.1); SODIUM,NA 138 mmol/L (136-148)
== END 2021-12-01 13:16 | disposition home or self-care (01) ==
LOC: MW.ED 11:08
DX: R55 Syncope and collapse (principal); R06.4 Hyperventilation
CPT/HCPCS: 36415; 80053; 83735; 84443; 84484; 85025; 93005; 96374; 96375; 99284; J2060; J2270

== ENCOUNTER 2021-12-16 10:44 | Emergency (ER) | payer BC, MEDICAID ==
[2021-12-16] MEDS ORDERED: Sodium Chloride 0.9% 1,000 ML IV ONE (10:46)
[2021-12-16] MEDS ORDERED: Ketorolac 30 MG/ML SDV IVPUSH ONE (11:53)
[2021-12-16 11:55] LABS: BLOOD UREA NITROGEN,BUN 15 mg/dL (7.0-18.0); CARBON DIOXIDE,CO2 23.4 mmol/L (21.0-32.0); CHLORIDE,CL 103 mmol/L (98-107); GLUCOSE RANDOM 106 mg/dL (74-106); POTASSIUM,K 4.2 mmol/L (3.5-5.1); SODIUM,NA 138 mmol/L (136-148)
== END 2021-12-16 12:38 | disposition home or self-care (01) ==
LOC: MW.ED 10:44
DX: R55 Syncope and collapse (principal)
CPT/HCPCS: 36415; 71045; 80053; 80305; 81003; 84484; 85025; 93005; 96374; 99285; J1885; J7030

== ENCOUNTER 2023-03-08 12:59 | Emergency (ER) | payer MEDICAID ==
[2023-03-08] MEDS ORDERED: Acetaminophen 500 MG Tab PO ONE (14:26)
[2023-03-08] MEDS ORDERED: Ketorolac 60 MG/2 ML SDV IM ONE (14:53)
[2023-03-08] MEDS ORDERED: Orphenadrine 60 MG/2 ML Inj IM ONE (14:53)
== END 2023-03-08 15:53 | disposition home or self-care (01) ==
LOC: MW.ED 12:59
DX: M54.42 Lumbago with sciatica, left side (principal); M54.41 Lumbago with sciatica, right side; F17.210 Nicotine dependence, cigarettes, uncomplicated; Z86.16 Personal history of COVID-19
CPT/HCPCS: 72100; 96372; 99283; A9270; J1885; J2360